=== PATIENT | male | born 1985 | race Caucasian/White ===

== ENCOUNTER → 2017-11-13 | Outpatient (CLI) | payer BC ==
[~2017-11-13] MED LIST: BACTRIM DS TAB1 EACH PO; KEFLEX500 MG PO; NOHOMEMEDICATIONS; NORCO 5-325 TA1 EACH PO; PERCOCET 5-3251 EACH PO
== END ==
LOC: M.RAD 10-14 12:35
DX: M19.011 Primary osteoarthritis, right shoulder (principal); S46.012A Strain of muscle(s) and tendon(s) of the rotator cuff of left shoulder, initial encounter; M65.811 Other synovitis and tenosynovitis, right shoulder; M24.011 Loose body in right shoulder; X58.XXXA Exposure to other specified factors, initial encounter; Z98.890 Other specified postprocedural states; Y93.89 Activity, other specified; Y92.89 Other specified places as the place of occurrence of the external cause; Y99.8 Other external cause status; Z79.899 Other long term (current) drug therapy